=== PATIENT | female | born 1995 | race Caucasian/White ===

== ENCOUNTER 2017-12-27 03:44 | Emergency (ER) | payer BC, OTHER ==
--- NOTE | 2017-12-27 03:57 | PDOC ---
History of Present Illness - General Chief Complaint: Chest Pain Stated Complaint: CHEST,BACK,RIB PAIN Time Seen by Provider: 12/27/17 03:50 History Source: Patient - History of Present Illness Initial Comments: 12/27/17 04:13 22 year old female c/o b/l lower rib pain for one week today pain is worse. pain is worse with movement, laughing and coughing. patient reports taking ibuprofen prior to arrival now with slight improvement in pain, pain reports picking up heavy groceries and house cleaning. denies recent travel, oCP use, prolonged sitting. patient also reports some lower back pain. denies numbness or tingling to lower extremities. denies urinary symptoms. 12/27/17 05:00 Past History - Past Medical History Allergies/Adverse Reactions: Allergies Allergy/AdvReac Type Severity Reaction Status Date / Time No Known Allergies Allergy Verified 12/27/17 04:33 Home Medications: Ambulatory Orders Vitamins (Sjr) - 1 cap PO DAILY 06/20/14 Ibuprofen 600 mg PO QID PRN #20 tablet 12/27/17 Asthma: Yes (USES ALBUTEROL PRN) Cancer: No Cardiac Disorders: No Diabetes: No HTN: No Seizures: No Thyroid Disease: No - Suicide/Smoking/Psychosocial Hx Smoking Status: No Smoking History: Never smoked Have you smoked in the past 12 months: No Number of Cigarettes Smoked Daily: 0 Hx Alcohol Use: No Drug/Substance Use Hx: No Hx Substance Use Treatment: No Review of Systems - Review of Systems Able to Perform ROS?: Yes Is the patient limited [place] proficient: No Constitutional: No: Symptoms Reported, See HPI, Chills, Diaphoresis, Fever, Loss of Appetite, Malaise, Night Sweats, Weakness, Weight Stable, Unintentional Wgt. Loss, Unexplained wgt Loss, Other Respiratory: Yes: Cough Cardiac (ROS): Yes: Chest Pain. No: Symptoms Reported, See HPI, Edema, Irregular Heart Rate, Lightheadedness, Palpitations, Syncope, Chest Tightness, Other : No: Symptoms Reported, See HPI, Burning, Dysuria, Discharge, Frequency, Flank Pain, Hematuria, Incontinence, Pain, Urgency, Testicular Mass, Testicular Swelling, Lesions, Testicular Pain, Other Musculoskeletal: Yes: Back Pain. No: Symptoms Reported, See HPI, Gout, Joint Pain, Joint Swelling, Muscle Pain, Muscle Weakness, Neck Pain, Joint Stiffness, Other *Physical Exam - Vital Signs Last Vital Signs Temp Pulse Resp BP Pulse Ox 98.6 F 92 H 16 123/78 98 12/27/17 03:55 12/27/17 03:55 12/27/17 03:55 12/27/17 03:55 12/27/17 03:55 - Physical Exam General Appearance: Yes: Appropriately Dressed Respiratory/Chest: positive: Chest Tender (b/l lower chest tenderness anterior and posterior chest), Lungs Clear, Normal Breath Sounds Cardiovascular: positive: Regular Rhythm, Regular Rate Gastrointestinal/Abdominal: positive: Normal Bowel Sounds, Soft. negative: Tender Musculoskeletal: positive: Normal Inspection. negative: CVA Tenderness Extremity: positive: Normal Capillary Refill, Normal Inspection, Normal Range of Motion Integumentary: positive: Normal Color, Dry, Warm Neurologic: positive: Fully Oriented, Alert, Normal Mood/Affect ED Treatment Course - ADDITIONAL ORDERS Additional order review: Laboratory Results 12/27/17 04:24 Urine Color Yellow Urine Appearance Clear Urine pH 5.0 Ur Specific [place] 1.027 Urine Protein Negative Urine Glucose (UA) Negative Urine Ketones Negative Urine Blood Negative Urine Nitrite Negative Urine Bilirubin Negative Urine Urobilinogen 4.0 e.u/dl H Ur Leukocyte Esterase Negative Urine HCG, Qual Negative - Medications Given in the ED: ED Medications Discontinued Medications Generic Name Dose Route Start Last Admin Trade Name Freq PRN Reason Stop Dose Admin Ketorolac Tromethamine 30 mg 12/27/17 04:54 12/27/17 05:05 Toradol Injection - IM 12/27/17 04:55 30 mg ONCE ONE Administration Medical Decision Making - Medical Decision Making 12/27/17 05:43 Hrt 86, resp 20, o2 sat 100% on room air. patient reports feeling better. will d /c home. *DC/Admit/Observation/Transfer Diagnosis at time of Disposition: Chest pain Qualifiers: Chest pain type: intercostal pain Qualified Code(s): R07.82 - Intercostal pain - Discharge Dispostion Disposition: HOME Condition at time of disposition: Fair - Prescriptions Prescriptions: Ibuprofen 600 mg PO QID PRN #20 tablet PRN Reason: Pain - Referrals - Patient Instructions Printed Discharge Instructions: Costochondritis Additional Instructions: apply ice. heat to the area. take ibuprofen every 6 hours as needed for pain follow up with your doctor as soon as possible. f - Post Discharge Activity
[2017-12-27 04:33] VITALS: BP 123/78; PULSE 92; TEMP 98.6; BMI 32.5
[2017-12-27 04:43] LABS: URINE APPEARANCE CLEAR; URINE BILIRUBIN NEGATIVE (<2.0 mg/dL); URINE COLOR YELLOW; URINE GLUCOSE (UA) NEGATIVE (NEGATIVE); URINE KETONE NEGATIVE (NEGATIVE); URINE LEUK ESTERASE NEGATIVE (NEGATIVE); URINE NITRITE NEGATIVE (NEGATIVE); URINE PROTEIN NEGATIVE (NEGATIVE); URINE UROBILINOGEN 4.0 E.U/dl mg/dL (0.2-1.0)
[2017-12-27 04:45] LABS: HCG,QUALITATIVE URINE Negative
[2017-12-27] MEDS ORDERED: KETOROLAC TROMETHAMINE 30 MG/1 ML VIAL IM ONE (04:54)
[2017-12-27] MEDS ORDERED: KETOROLAC TROMETHAMINE 30 MG/1 ML VIAL ONE (05:01)
--- NOTE | 2017-12-27 14:47 | EKG ---
Test Reason : Blood Pressure : / mmHG Vent. Rate : 077 BPM Atrial Rate : 077 BPM P-R Int : 184 ms QRS Dur : 086 ms QT Int : 366 ms P-R-T Axes : 045 078 054 degrees QTc Int : 414 ms NORMAL SINUS RHYTHM NORMAL ECG NO PREVIOUS ECGS AVAILABLE Confirmed by BELLE LOREDO MD ([id number]) on 12/27/2017 2:47:09 PM Referred By: Confirmed By:BELLE LOREDO MD
== END 2017-12-27 06:05 | disposition home or self-care (01) ==
LOC: JER 03:44
PROC: 3E0233Z Introduction of Anti-inflammatory into Muscle, Percutaneous Approach (ICD-10-PCS; principal; 2017-12-27)
DX: R07.82 Intercostal pain (principal); J45.909 Unspecified asthma, uncomplicated
CPT/HCPCS: 81003; 84703; 93005; 93010; 99283-25